=== PATIENT | male | born 1960 | race Caucasian/White ===

== ENCOUNTER 2018-03-21 18:03 | Emergency (ER) | payer MEDICAID ==
[~2018-03-21] VITALS: Ht 180.3 cm; Wt 90.0 kg
[~2018-03-21 18:03] MED LIST: ACET-1757 PO; ASPI325T17 PO; ATOR40TA PO; CITA40TA12 PO; CLON2TAB PO; QUET300T5 PO
--- NOTE | 2018-03-21 18:17 | NUR ---
BIB [facility]. EtOH. [place] [employer]. Oriented to self and place, not time. Non-ambulatory. Placed on NIBP and pulse ox. Will continue to monitor.
--- NOTE | 2018-03-21 18:52 | NUR ---
Report to LUIGI Meyer.
[2018-03-21 19:01] VITALS: BP 138/80
--- NOTE | 2018-03-21 19:01 | NUR ---
REPORT FROM LUIGI PRITCHETT. PT SITTING UP IN [facility] W/ EYES CLOSED. RESPIRATION EVEN AND UNLABORED. SPO2 >90% ON RA. PT NON-TREMULOUS; PWD.
--- NOTE | 2018-03-21 19:16 | NUR ---
PT EASILY ARROUSABLE TO VOICE. PT A&OX4, SPEECH CLEAR. PT UPDATED TO POC (AMBULATE/DISPO) AND DEMONSTRATES UNDERSTANDING.
--- NOTE | 2018-03-21 19:37 | NUR ---
PT AMBULATORY W/ NO ASSISTANCE. ERP AWARE. AWAITING DISPO
--- NOTE | 2018-03-21 19:58 | NUR ---
PT MAINTAINING SPO2 >90%. NAD NOTED; A&OX4 AT THIS TIME. DC EDUCATION PROVIDED, PT DEMONSTRATES UNDERSTANDING. PT TRANSFERED SELF STEADILY FROM GURNEY TO WHEELCHAIR. PT WHEELED TO DC WITH RN. I CALLED FOR PT WHO STATES HE "CAN AFFORD A RIDE HOME" AND CAN STATE HIS ADDRESS. REG STAFF STATES WILLINGNESS TO WHEEL PT TO LOBBY TO WAIT FOR TAXI. PT AWARE OF PLAN AND THAT TAXI HAS BEEN CALLED. PT DRESSED APPROPRIATELY FOR WEATHER.
== END 2018-03-21 20:02 | disposition home or self-care (01) ==
LOC: ED 19:40
DX: F10.120 Alcohol abuse with intoxication, uncomplicated (principal); F41.1 Generalized anxiety disorder
CPT/HCPCS: 99283

== ENCOUNTER 2019-02-28 06:30 | Emergency (ER) | payer MEDICAID ==
[~2019-02-28] VITALS: Ht 180.3 cm; Wt 95.5 kg
[~2019-02-28 06:30] MED LIST changes: -ACET-1757 PO; +ACET-2065 PO
--- NOTE | 2019-02-28 06:48 | NUR ---
THIS IS A 58Y M BIB EMS FROM [facility] PT WAS FOUND UNCONSCIOUS. PT DROWSY BUT AROUSABLE TO VERBAL STIMULI. PT CALM AND COOPERATIVE. PT STS HE WAS PARTYING. PT CONNECTED TO MONITORING VSS. NADN. CALL LIGHT IN REACH.
--- NOTE | 2019-02-28 07:28 | NUR ---
REPORT RECIEVED FROM JOSÉ LUIS Dalton PT RESTING IN BED, CALL LIGHT IN REACH
--- NOTE | 2019-02-28 09:09 | NUR ---
SNACK PROVIDED, STEADY AMBULATION.
[2019-02-28 09:10] VITALS: BP 132/81
--- NOTE | 2019-02-28 10:38 | NUR ---
DISCHARGE INSTRUCTIONS REVIEWED
== END 2019-02-28 10:40 | disposition home or self-care (01) ==
LOC: ED 10:30
DX: F10.220 Alcohol dependence with intoxication, uncomplicated (principal); Y90.0 Blood alcohol level of less than 20 mg/100 ml
CPT/HCPCS: 70450; 93005; 99284

== ENCOUNTER 2020-07-21 00:56 | Emergency (ER) | payer MEDICAID ==
[~2020-07-21] VITALS: Ht 177.8 cm; Wt 89.0 kg
[2020-07-21 00:58] VITALS: BP 126/88
[2020-07-21] MEDS ORDERED: SODIUM CHLORIDE FLUSH 10ML SYR IVF ONE (01:30)
[2020-07-21] MEDS ORDERED: ONDANSETRON 2MG/ML, 2ML IVPush ONE (01:30)
[2020-07-21] MEDS ORDERED: SODIUM CHLORIDE 0.9% 1,000ML IVBOLUS ONE (01:30)
[2020-07-21 01:42] LABS: ALANINE AMINOTRANSFERASE 20 U/L (12-78); ALBUMIN 3.3 g/dL (3.4-5.0); ANION GAP 10 mmol/L (5-15); CALCIUM 7.9 mg/dL (8.5-10.1); CHLORIDE 109 mmol/L (98-107); CREATININE 0.97 mg/dL (0.7-1.3)
[2020-07-21 01:44] LABS: ALKALINE PHOSPHATASE 103 U/L (45-117); BILIRUBIN,TOTAL 0.2 mg/dL (0.2-1.0); TOTAL PROTEIN 6.9 g/dL (6.4-8.2)
[2020-07-21 01:55] LABS: BASOPHILS % (AUTO) 1 % (0-1); EOSINOPHILS % (AUTO) 1 % (1-7); LYMPHOCYTES % (AUTO) 24 % (22-44); MEAN CORPUSCULAR HEMOGLOBIN 29.9 pg (27.5-34.5); MEAN CORPUSCULAR HGB CONC 34.2 g/dL (33.2-36.2); MEAN PLATELET VOLUME 6.8 fL (7.4-10.4); MONOCYTES % (AUTO) 7 % (2-9); NEUTROPHILS % (AUTO) 67 % (42-75); PLATELET COUNT 277 x10^3/uL (130-400); RED BLOOD COUNT 5.03 x10^6/uL (4.38-5.82); RED CELL DISTRIBUTION WIDTH 14.2 % (9.4-14.8)
--- NOTE | 2020-07-21 02:31 | NUR ---
PATIENT CALLED IN THE LOBBY. STATES HE IS LEAVING.
== END 2020-07-21 02:35 | disposition home or self-care (01) ==
LOC: ED 01:06
DX: R11.2 Nausea with vomiting, unspecified (principal)
CPT/HCPCS: 36415; 80053; 80320; 83690; 85025; 99283; G0480